=== PATIENT | female | born 1980 | race African-American/Black ===

== ENCOUNTER 2022-05-09 13:47 | Outpatient (CLI) | payer BC | END 2022-05-09 13:48 | disposition home or self-care (01) | LOC: CSHLAB 13:47 | PROVIDERS: ATTEND Internal Medicine Critical Care Medicine | DX: Z20.822 Contact with and (suspected) exposure to COVID-19 (principal) | CPT/HCPCS: 87811 ==

== ENCOUNTER 2022-05-13 09:02 | Outpatient (CLI) | payer BC | END 2022-05-13 09:03 | disposition home or self-care (01) | LOC: CSHCT 09:02 | PROVIDERS: ATTEND Internal Medicine Critical Care Medicine | DX: R06.00 Dyspnea, unspecified (principal); R94.2 Abnormal results of pulmonary function studies | CPT/HCPCS: 94060; 94726; 94729; 94760 ==

== ENCOUNTER 2022-07-26 11:17 | Outpatient (CLI) | payer BC | END 2022-07-26 11:18 | disposition home or self-care (01) | LOC: CSHRAD 11:17 | PROVIDERS: ATTEND Family Medicine | DX: R76.12 Nonspecific reaction to cell mediated immunity measurement of gamma interferon antigen response without active tuberculosis (principal) | CPT/HCPCS: 71046 ==